=== PATIENT | male | born 1985 | race African-American/Black ===

== ENCOUNTER 2017-11-24 15:23 | Emergency (ER) | payer OTHER ==
[~2017-11-24] VITALS: Ht 177.8 cm
[2017-11-24 15:56] LABS: BASOPHIL (%) 0.6 % (0-1); EOSINOPHIL (%) 0.7 % (0-5); EOSINOPHIL COUNT 0.1 K/uL (0-0.3); HEMATOCRIT 45.7 % (38.0-50.0); HEMOGLOBIN 14.5 G/DL (12.5-16.6); IMMATURE GRANULOCYTE (%) 0.4 % (0.0-0.7); LYMPHOCYTE (%) 11.3 % (15-42); LYMPHOCYTE COUNT 0.8 K/uL (1.0-2.8); MCH 26.6 PG (29.0-34.0); MCHC 31.7 G/DL (30.0-36.0); MCV 83.7 FL (86-99); MONOCYTE (%) 6.4 % (3-12); MONOCYTE COUNT 0.5 K/uL (0-0.8); NEUTROPHIL (%) 80.6 % (45-76); NEUTROPHIL COUNT 5.8 K/uL (1.8-6.4); PLATELET COUNT 310 K/uL (156-360); RBC DIS.WIDTH-CV 14.8 % (11.8-14.6); RBC DIS.WIDTH-SD 44.9 % (39-53); RED BLOOD COUNT 5.46 M/uL (4.00-5.50); WHITE BLOOD COUNT 7.2 K/uL (4.1-10.2)
[2017-11-24 16:04] LABS: ALBUMIN 4.4 g/dL (3.2-4.8); CHLORIDE 104 mEq/L (99-109); POTASSIUM 4.2 mEq/L (3.7-5.4); SODIUM 140 mEq/L (136-147)
[2017-11-24 16:06] LABS: GLUCOSE 94 mg/dL (70-99)
[2017-11-24 16:08] LABS: TOTAL BILIRUBIN 0.5 mg/dL (0.0-1.0)
[2017-11-24 16:09] LABS: SERUM ETHYL ALCOHOL < 10 mg/dL
[2017-11-24 16:10] LABS: ALKALINE PHOSPHATASE 81 IU/L (3-129); CREATININE 1.1 mg/dL (0.6-1.3); GFR ESTIMATE (CALCULATED) > 59 mL/min/ (58.99-99999)
[2017-11-24 16:11] LABS: AST (GOT) 16 IU/L (2-34); UREA NITROGEN (BUN) 8 mg/dL (9-23)
[2017-11-24 16:13] LABS: ALT (GPT) 12 IU/L (3-49)
[2017-11-24 17:50] VITALS: BP 118/80
[2017-11-24 18:05] LABS: AMPHETAMINE NEGATIVE (500 ng/mL); BARBITURATES NEGATIVE (200 ng/mL); BENZODIAZEPINES NEGATIVE (150 ng/mL); BUPRENORPHINE NEGATIVE (10 ng/mL); COCAINE NEGATIVE (150 ng/mL); METHADONE NEGATIVE (200 ng/mL); METHAMPHETAMINE NEGATIVE (500 ng/mL); OPIATES (MORPHINE) NEGATIVE (100 ng/mL); OXYCODONE NEGATIVE (100 ng/mL); PHENCYCLIDINE NEGATIVE (25 ng/mL); PROPOXYPHENE NEGATIVE (300 ng/mL); THC CANNABINOIDS PRESUMPTIVE POSITIVE (50 ng/mL); TRICYCLIC ANTIDEPRESSANTS NEGATIVE (300 ng/mL)
== END 2017-11-24 18:06 | disposition home or self-care (01) ==
LOC: EME 15:23
PROVIDERS: Emergency Medicine
DX: F32.9 Major depressive disorder, single episode, unspecified (principal); R45.1 Restlessness and agitation
CPT/HCPCS: 80053; 84999; 85025; 90837; 99281; 99285; G0480